=== PATIENT | male | born 1990 | race Caucasian/White ===

== ENCOUNTER 2016-08-21 02:38 | Emergency (ER) | payer BC ==
[~2016-08-21 02:38] MED LIST: ACET500CAP PO; ADVIL PO; FLOMAX4 PO; NORCO1 TA1 PO; PCET PO; ZYRTEC ALLGY10 MG PO
[2016-08-21 03:13] LABS: ASCORBIC ACID (UR NOT ORDER) NEG (NEG); BILIRUBIN, URINE NEGATIVE (NEG); ER URINALYSIS TAT 0 Hrs 00 Mins; KETONE, URINE NEGATIVE (NEG); LEUKOCYTE ESTERASE(NOT OR NEG (NEG); NITRITE (URINE) NEG (NEG); WBC (NOT ORDERED) (RFLEX) 2 (0-5)
[2016-08-21 03:13] LABS: BASOPHILS 0.3 %; BASOPHILS ABSOLUTE 0.02 10/3/uL (0.0-0.16); EOSINOPHILS 5.1 %; EOSINOPHILS ABSOLUTE 0.37 10/3/uL (0.0-0.53); ER CBC TAT 0 Hrs 10 Mins; HEMATOCRIT 41.5 % (40.0-51.0); HEMOGLOBIN 14.9 g/dL (13.6-17.8); IMMATURE GRANULOCYTES 0.1 %; IMMATURE GRANULOCYTES ABSOLUTE 0.01 10/3/uL (0.0-0.11); LYMPHOCYTES ABSOLUTE 1.53 10/3/uL (0.67-4.30); MANUAL DIFF NO %; MEAN CORPUS HGB CONC 35.9 g/dL (32.0-36.0); MEAN CORPUSCULAR HEMOGLOB 30.6 pg (26.0-34.0); MEAN CORPUSCULAR VOLUME 85.2 fL (80-100); MEAN PLATELET VOLUME 10.4 fL (9.2-13.0); MONOCYTES 13.8 %; MONOCYTES ABSOLUTE 1.01 10/3/uL (0.21-1.20); NEUTROPHILS 59.7 %; NEUTROPHILS ABSOLUTE 4.36 10/3/uL (2.02-8.40); PLATELET COUNT 250 10/3/uL (150-400); RBC DISTRIBUTION WIDTH 12.1 % (12.0-16.0); RED CELL COUNT 4.87 10/6/uL (4.7-6.1); WHITE BLOOD CELLS 7.3 10/3/uL (4.5-10.5)
[2016-08-21 03:20] LABS: CALCIUM, SERUM 8.5 MG/DL (8.5-10.4); CHLORIDE, SERUM 105 MMOL/L (96-112); CREATININE 0.93 MG/DL (0.70-1.30); GFR AFRICAN AMERICAN 129 ML/MIN (>=60); GFR NON AFRICAN AMERICAN 111 ML/MIN (>=60); GLUCOSE, SERUM 104 MG/DL (60-99); POTASSIUM, SERUM 3.4 MMOL/L (3.5-5.3); SODIUM, SERUM 143 MMOL/L (135-148)
[2016-08-21 03:22] LABS: BUN (BLOOD UREA NITROGEN) 10 MG/DL (6-23); CO2 (CARBON DIOXIDE) 32 MMOL/L (24-34)
== END 2016-08-21 04:14 | disposition home or self-care (01) ==
LOC: ER 02:38
PROVIDERS: Specialist
DX: M54.5 Low back pain (principal); N50.819 Testicular pain, unspecified
CPT/HCPCS: 74176; 80048; 81001; 85025; 96374; 96375; 99284; J1980; J2405